=== PATIENT | female | born 1970 | race Caucasian/White ===

== ENCOUNTER 2020-06-15 15:30 | Outpatient (CLI) | payer BC, SELFPAY ==
--- NOTE | ~2020-06-15 | MM_ITS ---
EXAMINATION: MM screening charu BI w marija HISTORY: Screening TECHNIQUE: Craniocaudal and mediolateral oblique 3-D tomosynthesis images were obtained and synthetic 2-D images were generated. CAD analysis was submitted and interpreted. COMPARISON: Comparison to multiple prior studies sequentially, with oldest reviewed study dated 06/25. BREAST PARENCHYMAL COMPOSITION: There are scattered areas of fibroglandular density. FINDINGS: There is no evidence of suspicious mass, calcification, or architectural distortion to sugg est malignancy in either breast. There has been no suspicious interval change. IMPRESSION: 1. No mammographic evidence of malignancy. 2. Recommend routine screening mammography in one year. BI-RADS Category 1: Negative Reviewed, dictated and finalized at location A.
== END 2020-06-15 15:31 | disposition home or self-care (01) ==
LOC: ANHIMG 15:36
PROVIDERS: PCP Family Medicine; Visit Provider Nurse Practitioner Obstetrics & Gynecology
DX: Z12.31 Encounter for screening mammogram for malignant neoplasm of breast (principal)
CPT/HCPCS: 77063; 77067

== ENCOUNTER 2021-07-05 16:41 | Outpatient (CLI) | payer BC, SELFPAY ==
--- NOTE | ~2021-07-05 | MM_ITS ---
EXAMINATION: MM screening charu BI w marija HISTORY: Screening mammogram TECHNIQUE: Craniocaudal and mediolateral oblique 3-D tomosynthesis images were obtained and synthetic 2-D images were generated. CAD analysis was submitted and interpreted. COMPARISON: 06/15/2020 bilateral digital screening mammogram /10/2018 diagnostic right mammogram 01/04/2019 bilateral digital screening mammogram 05/27/2017 bilateral digital screening mammogram BREAST PARENCHYMAL COMPOSITION: There are scattered areas of fibroglandular density. FINDINGS: There is no evidence of suspicious mass, calcification, or architectural distortion to sugg est malignancy in either breast. There has been no suspicious interval change. IMPRESSION: 1. No mammographic evidence of malignancy. 2. Recommend routine screening mammography in one year. BI-RADS Category 1: Negative Reviewed, dictated and finalized at location A.
== END 2021-07-05 16:42 | disposition home or self-care (01) ==
LOC: ANHIMG 16:42
PROVIDERS: PCP Family Medicine; Visit Provider Nurse Practitioner Obstetrics & Gynecology
DX: Z12.31 Encounter for screening mammogram for malignant neoplasm of breast (principal)
CPT/HCPCS: 77063; 77067

== ENCOUNTER 2022-10-09 10:29 | Outpatient (CLI) | payer BC, SELFPAY ==
--- NOTE | ~2022-10-09 | MM_ITS ---
EXAMINATION: MM screening charu BI w marija HISTORY: Screening mammogram TECHNIQUE: Craniocaudal and mediolateral oblique 3-D tomosynthesis images were obtained and synthetic 2-D images were generated. CAD analysis was submitted and interpreted. COMPARISON: , 06/15/2020 bilateral screening mammogram examinations BREAST PARENCHYMAL COMPOSITION: There are scattered areas of fibroglandular density. FINDINGS: There is no evidence of suspicious mass, calcification, or architectural distortion to sugg est malignancy in either breast. There has been no suspicious interval change. IMPRESSION: 1. No mammographic evidence of malignancy. 2. Recommend routine screening mammography in one year. BI-RADS Category 1: Negative Reviewed, dictated and finalized at location A. [employer]ENTICE
== END 2022-10-09 10:30 | disposition home or self-care (01) ==
LOC: ANHIMG 10:31
PROVIDERS: PCP Family Medicine; Visit Provider Nurse Practitioner Obstetrics & Gynecology
DX: Z12.31 Encounter for screening mammogram for malignant neoplasm of breast (principal)
CPT/HCPCS: 77063; 77067

== ENCOUNTER 2024-01-13 16:37 | Outpatient (CLI) | payer BC, SELFPAY ==
--- NOTE | ~2024-01-13 | MM_ITS ---
EXAMINATION: MM screening charu BI w marija HISTORY: Screening TECHNIQUE: Craniocaudal and mediolateral oblique 3-D tomosynthesis images were obtained and synthetic 2-D images were generated. CAD analysis was submitted and interpreted. COMPARISON: Comparison to multiple prior studies sequentially, with oldest reviewed study dated 05/27. BREAST PARENCHYMAL COMPOSITION: Not dense: There are scattered areas of fibroglandular density. FINDINGS: There is no evidence of suspicious mass, calcification, or architectural distortion to sugg est malignancy in either breast. There has been no suspicious interval change. IMPRESSION: 1. No mammographic evidence of malignancy. 2. Recommend routine screening mammography in one year. BI-RADS Category 1: Negative Reviewed, dictated and finalized at location A.
== END 2024-01-13 16:38 | disposition home or self-care (01) ==
PROVIDERS: PCP Family Medicine; Visit Provider Nurse Practitioner Obstetrics & Gynecology
DX: Z12.31 Encounter for screening mammogram for malignant neoplasm of breast (principal)
CPT/HCPCS: 77063; 77067

== ENCOUNTER 2025-02-28 14:12 | Outpatient (CLI) | payer OTHER, SELFPAY ==
--- OUTSIDE RECORDS SUMMARY | 2025-02-28 14:17 | XMS_ITS | Referral Summary ---
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 Name Role Phone Charlene Ortiz MD Primary Care Provi indra Dion Panchal MD PhD Unavailable [phone] Encounters Date Type Department Care Team Description 01/26/2025 Documentation [facility] Multiple Sclerosis [facility] [address] [place] [phone] Citlalli Rosenberg RN 01/26/2025 Letter (Out) [facility] Multiple Sclerosis [facility] [address] [place] [phone] 01/25/2025 Results Follow-Up [facility] Multiple Sclerosis [facility] [address] [place] [phone] Dion Panchal MD PhD Iron profile w/ IBC 01/25/2025 10:35 AM CDT Lab [facility] [address] [place] [phone] Multiple sclerosis (HCC) 01/25/2025 9:00 AM CDT Office Visit [facility] Multiple Sclerosis [address] [place] [address] Advanced Medicine [address] [place] [phone] Dion Panchal MD PhD Multiple sclerosis (HCC) (Primary Dx); Restless leg syndrome 01/15/2025 Letter (Out) [facility] Multiple Sclerosis [address] [facility] 7th [place] [phone] 01/05/2025 Telephone [facility] Multiple Sclerosis [address] [facility] [place] [phone] Malia Tom orders from Last 3 Months Allergies Active Allergy Reactions Criticality Noted Date Comments Colloidal Oatmeal Rash Medium 07/14/2024 Medications cetirizine (ZyrTEC) 10 mg tablet Take 1 tablet (10 mg total) by mouth daily Active cholecalciferol (VITAMIN D-3) 2000 unit tablet Act eriberto triamcinolone (KENALOG) 0.1 % cream Apply topically 2 (two) times a day Active multivit with calcium,iron,min (WOMEN'S DAILY MULTIVITAMIN ORAL) 0 Active OCRELIZUMAB IV Every 6 months 0 Active Active Problems Problem Noted Date Diagnosed Date History of optic neuritis 06/30/2024 History of COVID-19 06/30/2024 Medication monitoring encounter 07/24/2022 Overview (07/24/2022): Discussed healthy diet and disease prevention- reviewed working on healthy diet, regular physical activity to your level, wearing sun screen, seat belts. Reviewed not using any mind alternating substances and driving No texting/driving Discussed importance of scheduling recommended screening tests. Discussed importance of regular physical examinations for health maintenance Health Maintenance: Last PAP: 12/2020- Neg, Neg HPV Last mammogram: through 2020- Normal Last colonoscopy: referral placed Last Tdap: 2019 Last pneumonia: check with pharmacist Last Shingrix: @50 Last Flu: up to date Last COVID: up to date Assessment & Plan (07/24/2022 7:59 AM CDT): Discussed healthy diet and disease prevention- reviewed working on healthy diet, regular physical activity to your level, wearing sun screen, seat belts. Reviewed not using any mind alternating substances and driving No texting/driving Discussed importance of scheduling recommended screening tests. Discussed importance of regular physical examinations for health maintenance Health Maintenance: Last PAP: 12/2020- Neg, Neg HPV Last mammogram: through 2020- Normal Last colonoscopy: referral placed Last Tdap: 2019 Last pneumonia: check with pharmacist Last Shingrix: @50 Last Flu: up to date Last COVID: up to date Test results: if you have not received communication about test results within 7 days of the test being performed, please contact the office. Immunocompromised 06/06/2022 Assessment & Plan (07/24/2022 8:05 AM CDT): Secondary to medication Continue to be safe during the pandemic Immunosuppression due to drug therapy 03/24/2022 Assessment & Plan (07/24/2022 8:05 AM CDT): Secondary to medication Continue to be safe during the pandemic Assessment & Plan (06/05/2022 10:28 AM CDT): We reviewed treatment/pre exposure prophylaxis to COVID We reviewed that is it experimental, but that we hope that will decrease her risk of having severe COVID, hospitalization, ICU admission or She is going to reach out to her neurologist and let me know. Screening for cardiovascular condition 0 Assessment & Plan (12/02/2019 8:28 PM STAGE PRODUCER): Exam history, family history as well as exercise capacity are all normal. With only a left axis deviation on the ECG I do not see an indication for further evaluation. I will need to check her lipids however to complete the screen and this is in process. Abnormal ECG 12/01/2019 Overview (12/01/2019): Left axis deviation Assessment & Plan (12/02/2019 8:27 PM STAGE PRODUCER): Left axis deviation but otherwise normal. In the absence of a murmur and with her exercise tolerance this is not an indication for a further workup Assessment & Plan (12/02/2019 8:38 AM STAGE PRODUCER): Will see cardiology today for screening for medication High risk medication use 11/18/2019 Encounter for medication counseling 11/18/2019 Abnormal MRI 11/18/2019 Vitamin D deficiency 11/18/2019 Multiple sclerosis 10/28/2019 Assessment & Plan (07/24/2022 8:06 AM CDT): Chronic, stable Continue to follow with neurology Update me with any changes Call for questions or concerns Assessment & Plan (06/05/2022 10:27 AM CDT): Chronic, stable She will reach out to her neurologist to see if they are still recommending Evushield If they are given her immunosuppression, we will help her get set up Update me with any changes or concerns Assessment & Plan (12/02/2019 8:37 AM STAGE PRODUCER): Continue to follow with neuro Update me with any changes Call for questions or concerns Assessment & Plan (11/04/2019 1:40 PM STAGE PRODUCER): Continue to follow with neuro Will refer to cardiology for further care before starting medication Update me after the next visit Call for questions or concerns Optic neuritis 10/28/2019 Assessment & Plan (12/02/2019 8:38 AM STAGE PRODUCER): Stable Continue to follow with neuro Vision loss of right eye 08/13/2019 Assessment & Plan (11/04/2019 1:40 PM STAGE PRODUCER): Unchanged Continue to follow with neuro Update me after the visit Call for questions or concerns Assessment & Plan (08/13/2019 8:48 AM CDT): Will order AMINTA CT with/without contrast for further evaluation Any changes, to the er Referral to neuro placed Update me after the visit Call for questions or concerns Other headache syndrome 08/13/2019 Assessment & Plan (08/13/2019 8:48 AM CDT): Will check CT scan Will refer to neuro Update me after the visit Anything emergent to the er Call for questions or concerns Class 2 severe obesity due t o excess calories with serious comorbidity and body mass index (BMI) of 36.0 to 36.9 in adult 08/13/2019 Assessment & Plan (07/24/2022 8:05 AM CDT): BMI Follow-up includes: nutrition counseling. Assessment & Plan (05/24/2021 10:52 AM CDT): BMI Follow-up includes: nutrition counseling. Assessment & Plan (08/13/2019 8:49 AM CDT): BMI Follow-up includes: nutrition counseling. Immunizations Immunization Administration Dates Next Due COVID-19 mRNA (Finanzchef24) 0.3 m L (30 mcg) vaccine (12 years and up) 07/05/2023 Flucelvax Influenza Quad 08/21/2019 Hep B Vaccine 07/04/2020,01/28/2020,12/23/2019 Influenza, Quadrivalent, Mala l Culture-based MDCK, Preservative Free, Antibiotic Free, Intramuscular 06/28/2023,08/21/2019 Influenza, Quadrivalent, Spl it, Preservative Free, Intramuscular 07/14/2022,06/24/2021,06/18/2020 Influenza, Unspecified 08/21/2019 MightyMeeting (J&J) SARS-CoV-2 Vaccination 12/16/2020 Pneumococcal Conjugate Pcv20 07/23/2022 Tdap 12/02/2019 ZOSTER Recombinant 06/07/2023,03/22/2023 Social History Tobacco Use Types Packs/Day Years Used Date Smoking Tobacco: Never Smokeless Tobacco: Never Alcohol Use Standard Drinks/Week Comments Never 0 (1 standard drink = 0.6 oz pur e alcohol) AUDIT-C Answer Date Recorded Q1: How often do you have a drink containing alcohol? Never 01/14/2023 Q2: How many drinks containi ng alcohol do you have on a typical day when you are drinking? Patient does not drink Q3: How often do you have si x or more drinks on one occasion? Never 01/14/2023 PHQ-2 Answer Date Recorded PHQ-2 Total Score (If total score is 3 or more points, staff should administer the PHQ-9) 0 07/24/2022 Personal Safety Answer Date Recorded Have you ever been in or are you currently in a harmful physical or emotional relationship or is someone making you feel afraid or unsafe? 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 Not on file No t on file Last Filed Vital Signs Vital Sign Reading Time Taken Comments Blood Pressure 126/83 01/25/2025 9:00 AM CDT Pulse 79 01/25/2025 9:00 AM CDT Temperature 36.8 C (98.2 F) 01/25/2025 9:00 AM CDT Respiratory Rate 14 01/21/2023 3:35 PM CDT Oxygen Saturation 100% 01/21/2023 3:35 PM CDT Inhaled Oxygen Concentration - - Weight 98.7 kg (217 lb 9.6 oz) 01/25/2025 9:00 A M CDT Height 160 cm (5' 3 ) 01/25/2025 9:00 AM CDT Body Mass Index 38.55 01/25/2025 9:00 AM CDT Plan of Treatment Not on file Procedures Procedure Name Priority Date/Time Associated Diagnosis Comments EGFR Routine 01/25/2025 9:51 AM CDT Multiple sclerosis (HCC) DIFFERENTIAL AUTO Routine 01/25/2025 9:5 1 AM CDT Multiple sclerosis (HCC) IGM Routine 01/25/2025 9:51 AM CDT Multiple sclerosis (HCC) IMMUNE COMPETENCE Routine 01/25/2025 9:5 1 AM CDT Multiple sclerosis (HCC) COMPREHENSIVE METABOLIC PANEL Routine 01/25/2025 9:51 AM CDT Multiple sclerosis (HCC) CBC WITH AUTO DIFFERENTIAL Routine 01/25/2025 9:51 AM CDT Multiple sclerosis (HCC) FERRITIN Routine 01/25/2025 9:51 AM CDT Multiple sclerosis (HCC) IRON PROFILE W/ IBC Routine 01/25/2025 9 :51 AM CDT Multiple sclerosis (HCC) HEPATITIS B CORE ANTIBODY, TOTAL Routine 01/24/2025 7:24 AM CDT Multiple sclerosis (HCC) High risk medication use Immunosuppression due to drug therapy IMMUNOGLOBULINS A/E/G/M, SERUM Routine 01/08/2025 11:43 AM CDT Multiple sclerosis (HCC) High risk medication use Immunosuppression due to drug therapy LYMPHOCYTE SUBSET PANEL 1 Routine 01/08/2025 11:43 AM CDT Multiple sclerosis (HCC) High risk medication use Immunosuppression due to drug therapy COMPREHENSIVE METABOLIC PANEL Routine 01/08/2025 11:43 AM CDT Multiple sclerosis (HCC) High risk medication use Immunosuppression due to drug therapy CBC WITH AUTO DIFFERENTIAL Routine 01/08/2025 11:43 AM CDT Multiple sclerosis (HCC) High risk medication use Immunosuppression due to drug therapy HM MAMMOGRAPHY Routine 01/13/2024 COLONOSCOPY 01/21/2023 2:38 PM CDT PAP AND HIGH RISK HPV, REFLEX TO GENOTYPING Routine 12/14/2020 HEPATITIS PANEL, ACUTE Routine 0 12:23 PM STAGE PRODUCER Multiple sclerosis (HCC) Optic neuritis from Last 3 Months or Most Recently Relevant to Health Maintenance Results * eGFR (01/25/2025 9:51 AM CDT) eGFR See Comment >=60 Comment: Credited, Laboratory Error Wrong Collection Time Interpretive Data Reference Interval Normal >/= 90 mL/min/1.73m2 Mildly decreased* 60 - 89 mL/min/1.73m2 Mildly to moderately decreased 45 - 59 mL/min/1.73m2 Moderately to severely decreased 30 - 44 mL/min/1.73m2 Severely decreased 15 - 29 mL/min/1.73m2 Kidney Failure < 15 mL/min/1.73m2 *Relative to young adult level Estimated glomerular filtration rate is determined by the 2020 CKD-EPI equation recommended by the National Kidney Foundation (A Unifying Approach to GFR Estimation: Recommendations of the NKF-ASK Task Force on Reassessing the Inclusion of Race in Diagnosing Kidney Disease, JASN 2020). The CKD-EPI equation should not be used for patients with unstable renal function and has not been validated in children and those over 70. Current interpretive data was last reviewed 2021. Blood 01/25/2025 9:51 AM CDT 01/25/2025 10:52 AM CDT us Dion Panchal MD PhD LAB BLOOD ORDERABLES E dited Result - Final [facility] [place] [address] * Differential, auto (01/25/2025 9:51 AM CDT) Neutrophil abs See Comment 1.50 - 6.50 Comment:Credited, Laboratory Error Wrong Collection Time Imm gran abs See Comment 0.00 - 0.10 [facility] Comment:Credited, Laboratory Error Wrong Collection Time Lymphocyte abs See Comment 0.80 - 3.30 [facility] Comment:Credited, Laboratory Error Wrong Collection Time Monocyte abs See Comment 0.20 - 0.80 [facility] Comment:Credited, Laboratory Error Wrong Collection Time Eosinophil abs See Comment 0.00 - 0.50 [facility] Comment:Credited, Laboratory Error Wrong Collection Time Basophil abs See Comment 0.00 - 0.10 [facility] Comment:Credited, Laboratory Error Wrong Collection Time Neutrophil pct See Comment [facility] Comment: Credited, Laboratory Error Wrong Collection Time Interpretive Data Percent cell count reference ranges are not reported, since discordance with absolute values may lead to misinterpretation of CBC data. Current Interpretive Data was last revised on 2018. Imm gran pct See Comment [facility] Comment: Credited, Laboratory Error Wrong Collection Time Interpretive Data Percent cell count reference ranges are not reported, since discordance with absolute values may lead to misinterpretation of CBC data. Current Interpretive Data was last revised on 2018. Lymphocyte pct See Comment [facility] Comment: Credited, Laboratory Error Wrong Collection Time Interpretive Data Percent cell count reference ranges are not reported, since discordance with absolute values may lead to misinterpretation of CBC data. Current Interpretive Data was last revised on 2018. Monocyte pct See Comment [facility] Comment: Credited, Laboratory Error Wrong Collection Time Interpretive Data Percent cell count reference ranges are not reported, since discordance with absolute values may lead to misinterpretation of CBC data. Current Interpretive Data was last revised on 2018. Eosinophil pct See Comment [facility] Comment: Credited, Laboratory Error Wrong Collection Time Interpretive Data Percent cell count reference ranges are not reported, since discordance with absolute values may lead to misinterpretation of CBC data. Current Interpretive Data was last revised on 2018. Basophil pct See Comment [facility] Comment: Credited, Laboratory Error Wrong Collection Time Interpretive Data Percent cell count reference ranges are not reported, since discordance with absolute values may lead to misinterpretation of CBC data. Current Interpretive Data was last revised on 2018. Blood 01/25/2025 9:51 AM CDT 01/25/2025 10:44 AM CDT us Dion Panchal MD PhD LAB BLOOD ORDERABLES E dited Result - Final [facility] [address] [facility] [place] [address] * Immune competence (01/25/2025 9:51 AM CDT) CD3 pct See Comment 60 - 21 Comment:Credited, request ca nceled. CD3 Absolute See Comment 341 - 1884 [facility] Comment:Credited, request ca nceled. CD4 pct See Comment [facility] Comment:Credited, request ca nceled. CD4 Absolute See Comment 032 - 3393 [facility] Comment:Credited, request ca nceled. CD8 pct See Comment [facility] Comment:Credited, request ca nceled. CD8 Absolute See Comment 591 - 922 [facility] Comment:Credited, request ca nceled. CD19 pct See Comment [facility] Comment:Credited, request ca nceled. CD19 Absolute See Comment 90 - 488 [facility] Comment:Credited, request ca nceled. [id number] pct See Comment [facility] Comment:Credited, request ca nceled. [id number] Absolute See Comment 76 - 467 cells/mcL [facility] Comment:Credited, request ca nceled. CD4/CD8 ratio See Comment [facility] Comment:Credited, request ca nceled. Blood 01/25/2025 9:51 AM CDT 01/25/2025 10:44 AM CDT Result [facility] Dion Panchal MD PhD LAB BLOOD ORDERABLES E dited Result - Final Performing Organization Address [facility] Co de Phone Number [facility] [place] [employer] [place] [address] * (ABNORMAL) Iron profile w/ IBC (01/25/2025 9:51 AM CDT) Iron 28(L) 35 - 145 mcg/dL Comment:<Text removed> TIBC 303 250 - 400 mcg/dL [facility] Comment:<Text removed> Transferrin saturation 9(L) 20 - 50 % [facility] Comment:<Text removed> Blood 01/25/2025 9:51 AM CDT 01/25/2025 10:44 AM CDT Dion Panchal MD PhD LAB BLOOD ORDERABLES E dited Result - Final Performing Organization Address [facility] Co de Phone Number [facility] [place] [employer] [place] [address] * CBC with auto differential (01/25/2025 9:51 AM CDT) WBC See Comment 3.80 - 9.90 Comment:Credited, Laboratory Error Wrong Collection Time Hgb See Comment 11.9 - 15.5 [facility] Comment:Credited, Laboratory Error Wrong Collection Time Hct See Comment 35.6 - 45.5 [facility] Comment:Credited, Laboratory Error Wrong Collection Time Plt See Comment 150 - 400 [facility] Comment:Credited, Laboratory Error Wrong Collection Time MPV See Comment 9.1 - 12.3 [facility] Comment:Credited, Laboratory Error Wrong Collection Time RBC See Comment 3.90 - 5.20 [facility] Comment:Credited, Laboratory Error Wrong Collection Time MCV See Comment 81.3 - 96.4 [facility] Comment:Credited, Laboratory Error Wrong Collection Time MCH See Comment 27.1 - 33.3 [facility] Comment:Credited, Laboratory Error Wrong Collection Time MCHC See Comment 32.3 - 35.7 [facility] Comment:Credited, Laboratory Error Wrong Collection Time RDW CV See Comment 11.1 - 14.9 [facility] Comment:Credited, Laboratory Error Wrong Collection Time RDW SD See Comment 35.7 - 48.1 [facility] Comment:Credited, Laboratory Error Wrong Collection Time NRBC abs See Comment 0.00 - 0.01 [facility] Comment:Credited, Laboratory Error Wrong Collection Time Blood 01/25/2025 9:51 AM CDT 01/25/2025 10:44 AM CDT Dion Panchal MD PhD LAB BLOOD ORDERABLES E dited Result - Final Performing Organization Address City/[facility] Co de Phone Number [facility] [place] [address] * IgM (01/25/2025 9:51 AM CDT) Immunoglobulin M See Comment 40 - 230 mg/dL Comment:Credited, Laboratory Error Wrong Collection Time Blood 01/25/2025 9:51 AM CDT 01/25/2025 10:44 AM CDT Dion Panchal MD PhD LAB BLOOD ORDERABLES E dited Result - Final Performing Organization Address City/State/[facility] Co de Phone Number [facility] [place] [address] * Ferritin (01/25/2025 9:51 AM CDT) Ferritin 23 13 - 150 ng/mL Comment:<Text removed> Blood 01/25/2025 9:51 AM CDT 01/25/2025 10:44 AM CDT Dion Panchal MD PhD LAB BLOOD ORDERABLES E dited Result - Final [facility] [place] [address] * Comprehensive metabolic panel (01/25/2025 9:51 AM CDT) Sodium See Comment 135 - 145 mmol/L Comment:Credited, Laboratory Error Wrong Collection Time Potassium, pl See Comment 3.3 - 4.9 mmol/L [facility] Comment:Credited, Laboratory Error Wrong Collection Time Chloride See Comment 97 - 110 mmol/L [facility] Comment:Credited, Laboratory Error Wrong Collection Time CO2 See Comment 22 - 32 mmol/L [facility] Comment:Credited, Laboratory Error Wrong Collection Time Anion gap See Comment 2 - 15 mmol/L [facility] Comment:Credited, Laboratory Error Wrong Collection Time BUN See Comment 6 - 25 mg/dL [facility] Comment:Credited, Laboratory Error Wrong Collection Time Creatinine See Comment 0.60 - 1.10 mg/dL [facility] Comment:Credited, Laboratory Error Wrong Collection Time Glucose See Comment 70 - 199 mg/dL [facility] Comment: Credited, Laboratory Error Wrong Collection Time Interpretive Data Fasting glucose >/= 126 mg/dl is diagnostic for diabetes. Fasting is defined as no caloric intake for at least 8 hours. Fasting glucose between 100 mg/dl to 125 mg/dl is diagnostic of prediabetes. In a patient with classic symptoms of hyperglycemia or hyperglycemic crisis, a random glucose >/= 200 mg/dl is diagnostic for diabetes. In the absence of unequivocal hyperglycemia, results should be confirmed by repeat testing. The classification and Diagnosis of Diabetes Diabetes Care 2022; 46: S19-S40. Current interpretive data was last revised 2022. Calcium See Comment 8.5 - 10.3 mg/dL [facility] Comment:Credited, Laboratory Error Wrong Collection Time Bilirubin, total See Comment 0.1 - 1.2 mg/dL [facility] Comment:Credited, Laboratory Error Wrong Collection Time Protein, pl See Comment 6.5 - 8.5 g/dL [facility] Comment:Credited, Laboratory Error Wrong Collection Time Albumin See Comment 3.5 - 5.0 g/dL [facility] Comment:Credited, Laboratory Error Wrong Collection Time Alk phos See Comment 40 - 130 Units/L [facility] Comment:Credited, Laboratory Error Wrong Collection Time ALT See Comment 7 - 45 Units/L [facility] Comment:Credited, Laboratory Error Wrong Collection Time AST See Comment 10 - 45 Units/L [facility] Comment:Credited, Laboratory Error Wrong Collection Time Blood 01/25/2025 9:51 AM CDT 01/25/2025 10:44 AM CDT us Dion Panchal MD PhD LAB BLOOD ORDERABLES E dited Result - Final Performing Organization Address City/[facility] Co de Phone Number [facility] [place] [address] * Hepatitis B core antibody, total Blood (01/24/2025 7:24 AM CDT) Hep B core IgG/IgM NON-REACTI VE NON-REACTI VE [facility] Comment: For additional information, please refer to http://education.[employer].Vibrynt/faq/FYP905 (This link is being provided for informational/ educational purposes only.) Blood 01/24/2025 7:24 AM CDT 01/24/2025 7:24 AM CDT Narrative [facility] - 01/25/2025 6:13 AM CDT FASTING:NO FASTING: NO us Dion Panchal MD PhD LAB MICROBIOLOGY - GEN ERAL ORDERABLES Final Result [facility] [address] [place] [address] * (ABNORMAL) Immunoglobulins A/E/G/M, Serum (01/08/2025 11:43 AM CDT) [facility] Immunoglobulin A 193 47 - 310 mg/dL [facility] Immunoglobulin E 61 <HT=733 kU/L [facility] Immunoglobulin G 1,218 600 - 1,640 mg/dL [facility] Immunoglobulin M 41(L) 50 - 300 mg/dL [facility] Blood 01/08/2025 11:4 3 AM CDT 01/08/2025 11:44 AM CDT Narrative [facility] - 01/11/2025 12:23 PM CDT FASTING:YES FASTING: YES Dion Panchal MD PhD LAB BLOOD ORDERABLES F inal Result Performing Organization Address [facility] de Phone Number [facility] [address] [place] [address] * (ABNORMAL) Lymphocyte subset panel 1 (01/08/2025 11:43 AM CDT) [facility] % CD3 86(H) 57 - 85 % [facility] Absolute CD3+ cells 1,451 840 - 3,060 cells/uL [facility] CD4 % 64(H) 30 - 61 % [facility] CD4 cells 1,094 490 - 1,740 cells/uL [facility] % CD8 23 12 - 42 % [facility] Absolute CD8+ cells 402 180 - 1,170 cells/uL [facility] Bogart/Suppres sor ratio 2.72 0.86 - 5.00 [facility] % CD16+CD56 12 4 - 25 % [facility] Absolute NK cells (CD16+CD56+MALA LS) 202 70 - 760 cells/uL [facility] CD19 pct 6 - 29 % [facility] Comment:Less than 1 Absolute CD19+ CELLS <20(L) 110 - 660 cells/uL [facility] Lymphocytes, abs 1,686 850 - 3,900 cells/uL [facility] Blood 01/08/2025 11:4 3 AM CDT 01/08/2025 11:44 AM CDT Narrative [facility] - 01/11/2025 12:23 PM CDT FASTING:YES FASTING: YES us Dion Panchal MD PhD LAB BLOOD ORDERABLES F inal Result [facility] [address] [place] [address] * (ABNORMAL) CBC with auto differential (01/08/2025 11:43 AM CDT) WBC 7.0 3.8 - 10.8 Thousand/u L [facility] RBC, POC 4.77 3. [id number]||2025-02-28 16:24:00|MM_ITS|BURKT|Imaging|[id number]|"EXAMINATION: MM screening charu BI w marija HISTORY: Screening TECHNIQUE: Craniocaudal and mediolateral oblique 3-D tomosynthesis images were obtained and synthetic 2-D images were generated. CAD analysis was submitted and interpreted. COMPARISON: Comparison to multiple prior studies sequentially, with oldest reviewed study dated 01/04. BREAST PARENCHYMAL COMPOSITION: Not dense: There are scattered areas of fibroglandular density. FINDINGS: There is no evidence of suspicious mass, calcification, or architectural distortion to sugg est malignancy in either breast. There has been no suspicious interval change. IMPRESSION: 1. No mammographic evidence of malignancy. 2. Recommend routine screening mammography in one year. BI-RADS Category 1: Negative Reviewed, dictated and finalized at location B. IMPRESSION: 1. No mammographic evidence of malignancy. 2. Recommend routine screening mammography in one year. BI-RADS Category 1: Negative "
--- OUTSIDE RECORDS SUMMARY | 2025-02-28 14:17 | XMS_ITS | Encounter Summary ---
Author Organization [facility] Facility Care Team Providers Care Gill Net Stringer Name Role Phone Charlene Ortiz MD Primary Care Provi indra Rei Montero MD Unavailable [phone] Rei Montero MD Unavailable [phone] Dion Panchal MD PhD Unavailable [phone] Encounter Details Date Type Department Care Team (Latest Contact Info) Description 05/01/2017 Orders Only [facility] CLINCONV Provider, MD Polo [address] [place], [place] [id number] Social History Tobacco Use Types Packs/Day Years Used Date Smoking Tobacco: Never Assessed Comments Unknown Sex and Gender Information Value Date Recorded Sex Assigned at Not on file 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 us Historical Provider Final Res ult documented in this encounter Visit Diagnoses Not on filedocumented in this encounter Care Teams Gill Net Stringer Relationship Specialty Start Date End Date Charlene Ortiz MD [address] [place] [phone] PCP - General Family Medicine 08/12/19 Rei Montero MD [address] [place] [address] Consulting Physician Neurology 12/02/19 07/23/22 Rei Montero MD [address] [place] [address] Consulting Physician Neurology 12/02/19 07/23/22 Dion Panchal MD PhD [address] [facility] [id number] [place] [address] Consulting Physician Neurology 07/24/22 documented as of this encounter
--- OUTSIDE RECORDS SUMMARY | 2025-02-28 14:17 | XMS_ITS | Encounter Summary ---
Author Organization [facility] Address [address] [facility] [place] [address] Care Team Providers Care Toll Lineman Name Role Phone Unavailable Primary Care Provider Unavailabl e Encounter Details Date Type Department Care Team (Late st Contact Info) Description 07/23/2023 Lab Requisition [facility] - D[facility] [address] [place] [phone] Kieran Adams MD [address] [place] [address] Social History Tobacco Use Types Packs/Day Years Used Date Smoking Tobacco: Never Assessed Comments Unknown Sex and Gender Information Value Date Recorded Sex Assigned at Not on file 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 Gender Identity Not on file Sexual Orientation Not on file documented as of this encounter Plan of Treatment Not on file documented as of this encounter Procedures Procedure Name Priority Date/Time Associated Diagnosis Comments DERMATOPATHOLOGY Routine 07/22/2023 12:0 0 AM CDT documented in this encounter Results * DERMATOPATHOLOGY (07/22/2023 12:00 AM CDT) Case Report Dermatopathology Report Case: [id number] Authorizing Provider: Kieran Adams MD Collected: 07/22/2023 12:00 AM Ordering Location: [facility] Derm[facility] Lab Received: 07/23/2023 04:15 PM Pathologist: Marzena Jerry MD Specimen: Skin, left lateral upper eyelid 3 4:16 PM CDT DERMATOPATHOLOGY LABORATORY Final Diagnosis Specimen A. SKIN, left lateral upper eyelid: BENIGN VERRUCOUS KERATOSIS, INFLAMED (L82.1) (see microscopic description) 3 4:16 PM CDT DERMATOPATHOLOGY LABORATORY at 1616 CDT Clinical History R/O VV , Tag other 3 4:16 PM CDT DERMATOPATHOLOGY LABORATORY Gross Description Specimen A: Received is one formalin filled container labeled with the patient's name and designated left lateral upper eyelid. The specimen consists of a shave biopsy measuring 3x1x2 mm. Jar 0. 4:16 PM CDT DERMATOPATHOLOGY LABORATORY Microscopic Description Specimen A. SKIN, left lateral upper eyelid: Sections show hyperkeratosis, papillomatosis, hypergranulosis, and acanthosis. Inflammatory cells are present within the dermis. These histological findings can be seen in a verruca vulgaris or a seborrheic keratosis. Additional deeper sections were obtained and reviewed. 4:16 PM CDT DERMATOPATHOLOGY LABORATORY Disclaimer An external and internal positive and negative controls are appropriate for the histochemical, immunohistochemical and immunofluorescence stain(s) in this case (if any), except where stated explicitly. The performance characteristics of the stain(s) cited in this report were developed and its performance characteristic determined by the Dermatopathology Laboratory at [facility], directed by Dr. Lucas Spencer. These tests need not be, and therefore are not, approved by the [place] Food and Drug Administration. The tests are used for clinical purposes. Billing Codes Specimen Charges Stain Charges 37027 1 3 4:16 PM CDT DERMATOPATHOLOGY LABORATORY Embedded Images 3 4:16 PM CDT DERMATOPATHOLOGY LABORATORY Pathology/Cytolog y TISSUE SPECIMEN FROM SKIN / Unknown 07/22/2023 07/23/2023 4:15 PM CDT us Kieran Adams MD LAB - PATHOLOGY/CYTOLOGY ORD ERABLES Final Result DERMATOPATHOLOGY LABORATORY [facility] - Department of Dermatology [address], [address] [phone] documented in this encounter Visit Diagnoses Not on filedocumented in this encounter
--- OUTSIDE RECORDS SUMMARY | 2025-02-28 14:17 | XMS_ITS | Encounter Summary ---
Author Organization [facility] Facility Care Team Providers Care Plow Shaker Name Role Phone Charlene Ortiz MD Primary Care Provi indra Rei Montero MD Unavailable [phone] Rei Montero MD Unavailable [phone] Dion Panchal MD PhD Unavailable [phone] Encounter Details Date Type Department Care Team (Latest Contact Info) Description 05/09/2018 Orders Only [facility] CLINCONV Provider, MD Polo [address] [place], [place] [phone] Social History Tobacco Use Types Packs/Day Years Used Date Smoking Tobacco: Never Assessed Comments Unknown Sex and Gender Information Value Date Recorded Sex Assigned at Not on file 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 us Historical Provider Final Res ult documented in this encounter Visit Diagnoses Not on filedocumented in this encounter Care Teams Plow Shaker Relationship Specialty Start Date End Date Charlene Ortiz MD [address] [place] [phone] PCP - General Family Medicine 08/12/19 Rei Montero MD [address] [place] [address] Consulting Physician Neurology 12/02/19 07/23/22 Rei Montero MD [address] [place] [address] Consulting Physician Neurology 12/02/19 07/23/22 Dion Panchal MD PhD [address] [facility] [id number] [place] [address] Consulting Physician Neurology 07/24/22 documented as of this encounter
--- OUTSIDE RECORDS SUMMARY | 2025-02-28 14:17 | XMS_ITS | Encounter Summary ---
Author Organization [facility] Address [address] [place] [address] Phone Care Team Providers Care Freight Clerk Name Role Phone Charlene Ortiz MD Primary Care Provi indra Rei Montero MD Unavailable [phone] Rei Montero MD Unavailable [phone] Dion Panchal MD PhD Unavailable [phone] Encounter Details Date Type Department Care Team (Latest Contact Info) Description 11/04/2019 Orders Only [facility] Scanning, Provider Social History Tobacco Use Types Packs/Day Years Used Date Smoking Tobacco: Never Smokeless Tobacco: Never Alcohol Use Standard Drinks/Week Comments Never 0 (1 standard drink = 0.6 oz pur e alcohol) AUDIT-C Answer Date Recorded Frequency of Alcohol Consumption Never 08/13/2019 Average Number of Drinks Not on file 019 Frequency of Binge Drinking Not on file 10/2018 PHQ-2 Answer Date Recorded PHQ-2 Score 0 08/13/2019 Comments No Sex and Gender Information Value Date Recorded Sex Assigned at Not on file 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 Gender Identity Female 03/26/2021 3:39 PM CDT Sexual Orientation Straight 03/26/2021 3: 39 PM CDT 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 Not on file No t on file documented as of this encounter Plan of Treatment Not on file documented as of this encounter Procedures Procedure Name Priority Date/Time Associated Diagnosis Comments CARDIOLOGY DOCUMENT SCAN 11/04/2019 documented in this encounter Results * SCAN - CARDIOLOGY (11/04/2019) Anatomical Region Laterality Modality Other us Provider Scanning CV CARDIAC SERVICES PROCEDURES Final Result documented in this encounter Visit Diagnoses Not on filedocumented in this encounter Care Teams Freight Clerk Relationship Specialty Start Date End Date Charlene Ortiz MD [address] [place] [address] PCP - General Family Medicine 08/12/19 Rei Montero MD [address] [place] [address] Consulting Physician Neurology 12/02/19 07/23/22 Rei Montero MD [address] [place] [address] Consulting Physician Neurology 12/02/19 07/23/22 Dion Panchal MD PhD [address] [facility] [address] [id number] [place] [address] Consulting Physician Neurology 07/24/22 documented as of this encounter
--- OUTSIDE RECORDS SUMMARY | 2025-02-28 14:17 | XMS_ITS | Encounter Summary ---
Author Organization [facility] Address [address] [place] [address] Care Team Providers Care Cosmetics Demonstrator Name Role Phone Charlene Ortiz MD Primary Care Provi indra Rei Montero MD Unavailable Rei Montero MD Unavailable Dion Panchal MD PhD Unavailable [phone] Encounter Details Date Type Department Care Team (Late st Contact Info) Description 09/07/2021 Telephone [facility] Radiology [address] [place], [place] [phone] Rei Montero MD [address] [place], [place] [phone] Social History Tobacco Use Types Packs/Day Years Used Date Smoking Tobacco: Never Smokeless Tobacco: Never Alcohol Use Standard Drinks/Week Comments Never 0 (1 standard drink = 0.6 oz pur e alcohol) AUDIT-C Answer Date Recorded Q1: How often do you have a drink containing alc ohol? Never 05/24/2021 Average Number of Drinks Not on file 021 Q3: How often do you have si x or more drinks on one occasion? 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 on file No t on file documented as of this encounter Plan of Treatment Not on file documented as of this encounter Visit Diagnoses Not on filedocumented in this encounter Care Teams Cosmetics Demonstrator Relationship Specialty Start Date End Date Charlene Ortiz MD [address] [place] [address] PCP - General Family Medicine 08/12/19 Rei Montero MD [address] [place] [address] Consulting Physician Neurology 12/02/19 07/23/22 Rei Montero MD [address] [place] [address] Consulting Physician Neurology 12/02/19 07/23/22 Dion Panchal MD PhD [address] [facility] [id number] [place] [address] Consulting Physician Neurology 07/24/22 documented as of this encounter
--- OUTSIDE RECORDS SUMMARY | 2025-02-28 14:17 | XMS_ITS | Clinical Summary ---
Author Organization [address] Address [address] [place] [phone] Care Team Providers Care Corrective Therapist Name Role Phone Charlene Ortiz MD Primary Care Provi indra Dion Panchal MD PhD Unavailable [phone] Allergies Active Allergy Reactions Criticality Noted Date [...] 0 Assessment & Plan (12/02/2019 8:28 PM TITLE LAWYER): Exam history, family history as well as exercise capacity are all normal. With only a left axis deviation on the ECG I do not see an indication for further evaluation. I will need to check her lipids however to complete the screen and this is in process. Abnormal ECG 12/01/2019 Overview (12/01/2019): Left axis deviation Assessment & Plan (12/02/2019 8:27 PM TITLE LAWYER): Left axis deviation but otherwise normal. In the absence of a murmur and with her exercise tolerance this is not an indication for a further workup Assessment & Plan (12/02/2019 8:38 AM TITLE LAWYER): Will see cardiology today for screening for [...] concerns Assessment & Plan (12/02/2019 8:37 AM TITLE LAWYER): Continue to follow with neuro Update me with any changes Call for questions or concerns Assessment & Plan (11/04/2019 1:40 PM TITLE LAWYER): Continue to follow with neuro Will refer to cardiology for further care before starting medication Update me after the next visit Call for questions or concerns Optic neuritis 10/28/2019 Assessment & Plan (12/02/2019 8:38 AM TITLE LAWYER): Stable Continue to follow with neuro Vision loss of right eye 08/13/2019 Assessment & Plan (11/04/2019 1:40 PM TITLE LAWYER): Unchanged Continue to follow with neuro Update [...] AM CDT): BMI Follow-up includes: nutrition counseling. Encounters Date Type Department Care Team Description 01/26/2025 Documentation [facility] [address] [place] [address] Advanced Medicine [address] [place] [phone] Citlalli Rosenberg RN 01/26/2025 Letter (Out) [facility] [address] [place] [address] [phone] 01/25/2025 10:35 AM CDT Lab [facility] [address] [place] [phone] Multiple sclerosis (HCC) 01/25/2025 9:00 AM CDT Office Visit [facility] [address] [place] [address] Advanced [facility] [address] [place] [phone] Dion Panchal MD PhD Multiple sclerosis (HCC) (Primary Dx); Restless leg syndrome 01/25/2025 Results Follow-Up [facility] [address] [place] [address] for [facility] [address]th [place] [phone] Dion Panchal MD PhD Iron profile w/ IBC 01/15/2025 Letter (Out) [facility] [address] [facility] [address]th [place] [phone] 01/05/2025 Telephone [facility] [address] [place] [address] [place] [phone] Malia Tom orders from Last 3 Months Immunizations Immunization Administration Dates Next Due COVID-19 mRNA (AVIA) 0.3 m L (30 mcg) vaccine (12 years and up) 07/05/2023 Flucelvax Influenza Quad 08/21/2019 Hep B Vaccine 07/04/2020,01/28/2020,12/23/2019 Influenza, Quadrivalent, Kika l Culture-based MDCK, Preservative Free, Antibiotic Free, Intramuscular 06/28/2023,08/21/2019 Influenza, Quadrivalent, Spl it, Preservative Free, Intramuscular 07/14/2022,06/24/2021,06/18/2020 Influenza, Unspecified 08/21/2019 Jordin (J&J) SARS-CoV-2 Vaccination 12/16/2020 Pneumococcal Conjugate Pcv20 07/23/2022 Tdap 12/02/2019 ZOSTER Recombinant 06/07/2023,03/22/2023 Surgical History Surgery Date Site/Laterality Comments WISDOM TOOTH EXTRACTION Medical History Medical History Date Comments Migraine Eczema MS (multiple sclerosis) ([facility]) Family History Medical History Relation Name Comments No Known Problems Brother Hypertension Father Migraines Father Diabetes Maternal Grandfather Heart disease Maternal Grandfather Colon cancer Maternal Grandmother Heart disease Maternal Grandmother Hyperlipidemia Mother COPD Paternal Grandfather Hypertension Paternal Grandmother Relation Name Status Comments Brother Alive Father Alive Maternal Grandfather Maternal Grandmother Mother Alive Paternal Grandfather Paternal Grandmother Social History Tobacco Use Types Packs/Day Years [...] on file Legal Sex Female 2:34 AM TITLE LAW[employer]ER Gender Identity Female 03/26/2021 3:39 PM CDT Sexual Orientation Straight 03/26/2021 3: 39 PM CDT 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 Not on file No t on file Obstetrics History Last Filed Vital Signs Vital Sign Reading [...] 01/25/2025 9:00 AM CDT Plan of Treatment Health Maintenance Due Date Last Done Comments Cervical Cancer Screening 12/14/20212020, 11/05/2018, 11/05/2018 Depression Screening 07/24/2023 07/24/2022, 06/05/2022, 05/24/2021, Additional history exists Regular Well Visit/Exam 18-64 07/24/2023 07/24/2022, 07/24/2022 Covid-19 Vaccine (8 - 2023-2 5 season) 2024 07/05/2023, 10/08/2022, 03/30/2022, Additional history exists Breast Cancer Screening-Mammogram 01/12/2025 01/13/2024, 10/09/2022, 10/09/2022, Additional history exists Colon Cancer Screening-Colonoscopy 01/22/20282022 DTaP/Tdap/Td Vaccine (2 - Td or Tdap) 12/02/2029 12/02/2019 Hepatitis C Screening Completed 10/30/2019 Hepatitis B Screening Completed 07/04/2020 , 01/28/2020, 12/23/2019 Pneumococcal vaccine <65 Completed 07/23/2022 Zoster Vaccine Completed 06/07/2023, 03/22/2023 Influenza Vaccine Completed 07/17/2024, , 07/14/2022, Additional history exists Procedures Procedure Name Priority Date/Time Associated Diagnosis [...] GENOTYPING Routine 12/14/2020 HEPATITIS PANEL, ACUTE Routine 12:23 PM TITLE LAWYER Multiple sclerosis (HCC) Optic neuritis from Last [...] BLOOD ORDERABLES E dited Result - Final [facility] Department [place] [address] * Differential, auto (01/25/2025 9:51 AM CDT) Neutrophil abs See Comment 1.50 - 6.50 Comment:Credited, Laboratory Error Wrong Collection Time Imm gran abs See Comment 0.00 - 0.10 [facility] Comment:Credited, Laboratory Error Wrong Collection Time Lymphocyte abs See Comment 0.80 - 3.30 [facility] Comment:Credited, Laboratory Error Wrong Collection Time Monocyte abs See Comment 0.20 - 0.80 [facility] Comment:Credited, Laboratory Error Wrong Collection Time Eosinophil abs See Comment 0.00 - 0.50 [facility] Comment:Credited, Laboratory Error Wrong Collection Time Basophil [...] on 2018. Lymphocyte pct See Comment [facility] Comment: Credited, Laboratory Error Wrong Collection Time Interpretive Data Percent cell count reference ranges are not reported, since discordance with absolute values may lead to misinterpretation of CBC data. Current Interpretive Data was last revised on 2018. Monocyte pct See Comment [facility] Comment: Credited, Laboratory Error Wrong Collection Time Interpretive Data Percent cell count reference ranges are not reported, since discordance with absolute values may lead to misinterpretation of CBC data. Current Interpretive Data was last revised on 2018. Eosinophil pct See Comment [facility] Comment: Credited, Laboratory Error Wrong Collection Time Interpretive Data Percent cell count reference ranges are not reported, since discordance with absolute values may lead to misinterpretation of CBC data. Current Interpretive Data was last revised on 2018. Basophil pct See Comment [facility] Comment: Credited, Laboratory Error Wrong Collection Time Interpretive Data Percent cell count reference ranges are not reported, since discordance with absolute values may lead to misinterpretation of CBC data. Current Interpretive Data was last revised on 2018. Blood 01/25/2025 9:51 AM CDT 01/25/2025 10:44 AM CDT us Dion Panchal MD PhD LAB BLOOD ORDERABLES E dited Result - Final [facility] [place] [address] * Immune competence (01/25/2025 9:51 AM CDT) CD3 pct See Comment 60 88 Comment:Credited, request ca nceled. CD3 Absolute See Comment [phone] - [phone] [facility] Comment:Credited, request ca nceled. CD4 pct See Comment [facility] Comment:Credited, request ca nceled. CD4 Absolute See Comment 652 - 8221 [facility] Comment:Credited, request ca nceled. CD8 pct See Comment [facility] Comment:Credited, request ca nceled. CD8 Absolute See Comment 054 - 411 [facility] Comment:Credited, request ca nceled. CD19 pct See Comment [facility] Comment:Credited, request ca nceled. CD19 Absolute See Comment 76 - 417 [facility] Comment:Credited, request ca nceled. [id number] pct See Comment [facility] Comment:Credited, request ca nceled. [id number] Absolute See Comment 76 467 cells/mcL [facility] Comment:Credited, request ca nceled. CD4/CD8 ratio See Comment [facility] Comment:Credited, request ca nceled. Blood 01/25/2025 9:51 AM CDT 01/25/2025 10:44 AM CDT Dion Panchal MD PhD LAB BLOOD ORDERABLES E dited Result - Final Performing Organization Address [facility] Co de Phone Number [facility] [place] [address] * (ABNORMAL) Iron profile w/ IBC (01/25/2025 9:51 AM CDT) Pathologist [facility] Iron 28(L) 35 - 145 mcg/dL Comment:<Text removed> TIBC 303 250 - 400 mcg/dL [facility] Comment:<Text removed> Transferrin saturation 9(L) 20 - 50 % [facility] Comment:<Text removed> Blood 01/25/2025 9:51 AM CDT 01/25/2025 10:44 AM CDT Dion Panchal MD PhD LAB BLOOD ORDERABLES E dited Result - Final Performing Organization Address [facility] de Phone Number [facility] [place] [address] * CBC with auto differential (01/25/2025 9:51 AM CDT) Pathologist [facility] WBC See Comment 3.80 - 9.90 Comment:Credited, Laboratory Error Wrong Collection Time Hgb See Comment 11.9 - 15.5 [facility] Comment:Credited, Laboratory Error Wrong Collection Time Hct See Comment 35.6 - 45.5 [facility] Comment:Credited, Laboratory Error Wrong Collection Time Plt See Comment 150 - 400 [facility] Comment:Credited, Laboratory Error Wrong Collection Time MPV See Comment 9.1 - 12.3 [facility] Comment:Credited, Laboratory Error Wrong Collection Time RBC See Comment 3.90 - 5.20 [facility] Comment:Credited, Laboratory Error Wrong Collection Time MCV See Comment 81.3 - 96.4 [facility] Comment:Credited, Laboratory Error Wrong Collection Time MCH See Comment 27.1 - 33.3 [facility] Comment:Credited, Laboratory Error Wrong Collection Time MCHC See Comment 32.3 - 35.7 [facility] Comment:Credited, Laboratory Error Wrong Collection Time RDW CV See Comment 11.1 - 14.9 [facility] Comment:Credited, Laboratory Error Wrong Collection Time RDW SD See Comment 35.7 - 48.1 [facility] Comment:Credited, Laboratory Error Wrong Collection Time NRBC abs See Comment 0.00 - 0.01 [facility] Comment:Credited, Laboratory Error Wrong Collection Time Blood 01/25/2025 9:51 AM CDT 01/25/2025 10:44 AM CDT Dion Panchal MD PhD LAB BLOOD ORDERABLES E dited Result - Final Performing Organization Address [facility] de Phone Number [facility] [place] [address] * IgM (01/25/2025 9:51 AM CDT) Immunoglobulin M See Comment 40 - 230 mg/dL Comment:Credited, Laboratory Error Wrong Collection Time Blood 01/25/2025 9:51 AM CDT 01/25/2025 10:44 AM CDT Dion Panchal MD PhD LAB BLOOD ORDERABLES E dited Result - Final Performing Organization Address [facility] de Phone Number [facility] [address] * Ferritin (01/25/2025 9:51 AM CDT) Ferritin 23 13 - 150 ng/mL Comment:<Text removed> Blood 01/25/2025 9:51 AM CDT 01/25/2025 10:44 AM CDT us Dion Panchal MD PhD LAB BLOOD ORDERABLES E dited Result - Final [facility] [place] [address] * Comprehensive metabolic panel (01/25/2025 9:51 AM CDT) Sodium See Comment 135 - 145 mmol/L Comment:Credited, Laboratory Error Wrong Collection Time Potassium, pl See Comment 3.3 - 4.9 mmol/L [facility] Comment:Credited, Laboratory Error Wrong Collection Time Chloride See Comment 97 - 110 mmol/L [facility] Comment:Credited, Laboratory Error Wrong Collection Time CO2 See Comment 22 - 32 mmol/L [facility] Comment:Credited, Laboratory Error Wrong Collection Time Anion gap See Comment 2 - 15 mmol/L [facility] Comment:Credited, Laboratory Error Wrong Collection Time BUN See Comment 6 - 25 mg/dL [facility] Comment:Credited, Laboratory Error Wrong Collection Time Creatinine See Comment 0.60 - 1.10 mg/dL [facility] Comment:Credited, Laboratory Error Wrong Collection Time Glucose See Comment 70 - 199 mg/dL [facility] Comment: Credited, Laboratory Error Wrong [...] classification and Diagnosis of Diabetes Diabetes Care 2021; 46: S19-S40. Current interpretive data was last revised 2022. Calcium See Comment 8.5 - 10.3 mg/dL [facility] Comment:Credited, Laboratory Error Wrong Collection Time Bilirubin, total See Comment 0.1 - 1.2 mg/dL [facility] Comment:Credited, Laboratory Error Wrong Collection Time Protein, pl See Comment 6.5 - 8.5 g/dL [facility] Comment:Credited, Laboratory Error Wrong Collection Time Albumin See Comment 3.5 - 5.0 g/dL [facility] Comment:Credited, Laboratory Error Wrong Collection Time Alk phos See Comment 40 - 130 Units/L [facility] Comment:Credited, Laboratory Error Wrong Collection Time ALT See Comment 7 - 45 Units/L [facility] Comment:Credited, Laboratory Error Wrong Collection Time AST See Comment 10 - 45 Units/L [facility] Comment:Credited, Laboratory Error Wrong Collection Time Blood 01/25/2025 9:51 AM CDT 01/25/2025 10:44 AM CDT us Dion Panchal MD PhD LAB BLOOD ORDERABLES E dited Result - Final Performing Organization Address [facility]/ZIP Co de Phone Number [facility] [place] [address] * Hepatitis B core antibody, total Blood (01/24/2025 7:24 AM CDT) Pathologist [facility] Hep B core IgG/IgM NON-REACTI VE NON-REACTI VE [facility] Comment: For additional information, please refer to http://education.myCampusTutors/faq/AQT864 (This link is being provided for informational/ educational purposes only.) Blood 01/24/2025 7:24 AM CDT 01/24/2025 7:24 AM CDT Narrative [facility] - 01/25/2025 6:13 AM CDT FASTING:NO FASTING: NO us Dion Panchal MD PhD LAB MICROBIOLOGY - GEN ERAL ORDERABLES Final Result [facility] [address] [phone] * (ABNORMAL) Immunoglobulins A/E/G/M, Serum (01/08/2025 11:43 AM CDT) Pathologist [facility] Immunoglobulin A 193 47 - 310 mg/dL [facility] Immunoglobulin E 61 <YA=056 kU/L [facility] Immunoglobulin G 1,218 600 - 1,640 mg/dL [facility] Immunoglobulin M 41(L) 50 - 300 mg/dL [facility] Blood 01/08/2025 11:4 3 AM CDT 01/08/2025 11:44 AM CDT Narrative [facility] - 01/11/2025 12:23 PM CDT FASTING:YES FASTING: YES us Dion Panchal MD PhD LAB BLOOD ORDERABLES F inal Result [facility] [address] [place] [address] * (ABNORMAL) Lymphocyte subset panel 1 (01/08/2025 11:43 AM CDT) % CD3 86(H) 57 - 85 % [facility] Absolute CD3+ cells 1,451 840 - 3,060 cells/uL [facility] CD4 % 64(H) 30 - 61 % [facility] CD4 cells 1,094 490 - 1,740 cells/uL [id number]|2025-02-28 14:17:00|2025-02-28 14:17:00|XMS_ITS|BKG DAEMON|External Medical Summaries|[id number]|" Encounter Summary Created on: February 28, 2025 Charlene Pepper : 1970 Sex: Female Author Organization [facility] Address [address] [place] [address] Phone Care Team Providers Care Corrective Therapist Name Role Phone Charlene Ortiz MD Primary Care Provi indra Rei Montero MD Unavailable [phone] Rei Montero MD Unavailable [phone] Dion Panchal MD PhD Unavailable [phone] Encounter Details Date Type Department Care Team (Late st Contact Info) Description 10/15/2019 Telephone [facility] Scheduling [address] [facility] [address] [place], [place] [phone] Rei Montero MD [address] [place] [address] Social History Tobacco Use Types Packs/Day Years Used Date Smoking Tobacco: Never Alcohol Use Standard Drinks/Week Comments Never 0 (1 standard drink = 0.6 oz pur e alcohol) AUDIT-C Answer Date Recorded Frequency of Alcohol Consumption Never 08/13/2019 Average Number of Drinks Not on file 019 Frequency of Binge Drinking Not on file 10/2018 PHQ-2 Answer Date Recorded PHQ-2 Score 0 08/13/2019 Comments Unknown Sex and Gender Information Value Date Recorded Sex Assigned at Not on file Legal Sex Female 2:34 AM T[employer] LAW[employer]ER Gender Identity Female 03/26/2021 3:39 PM CDT Sexual Orientation Straight 03/26/2021 3: 39 PM CDT 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 Not on file No t on file documented as of this encounter Plan of Treatment Not on file documented as of this encounter Visit Diagnoses Not on filedocumented in this encounter Care Teams Corrective Therapist Relationship Specialty Start Date End Date Charlene Ortiz MD [address] [place] [address] PCP - General Family Medicine 08/12/19 Rei Montero MD [address] [place] [address] Consulting Physician Neurology 12/02/19 07/23/22 Rei Montero MD [address] [place] [address] Consulting Physician Neurology 12/02/19 07/23/22 Dion Panchal MD PhD [address] [facility] [id number] [place], [place] [id number] Consulting Physician Neurology 07/24/22 documented as of this encounter "
--- OUTSIDE RECORDS SUMMARY | 2025-02-28 14:17 | XMS_ITS | Data Portability ---
Author Organization [facility] Address [address] [place] [address] Care Team Providers Care Refinery Operator Reforming Unit Name Role Phone CHARLENE ORTIZ Primary Care Provider Assessment Encounter Date Assessment Date Assessment LastModified by Organization Details LastModified Time 12/14/2020 12/14/2020 Annual gynecological exam performed. Patient will come back in a year unless there are new symptoms. Not available 12/13/2020 15:24:10 02/08/2022 02/08/2022 Annual gynecological exam performed. Patient will come back in a year unless there are new symptoms. [email or web address] Not available 02/08/2022 14:37:30 09/24/2023 09/24/2023 Annual gynecological exam performed. Patient will come back in a year unless there are new symptoms. Not available 09/24/2023 11:48:26 09/30/2024 09/30/2024 Annual gynecological exam performed. Patient will come back in a year unless there are new symptoms. [email or web address] Not available 09/29/2024 14:23:23 Plan of Treatment Reminders Order Date Submit Date Provider Last Modified By Organization Details Last Modified Time Details Appointments None recorded. Lab pap, IG + HR HPV - HPV regardless but if HPV is positive need subtyping 16,18/45 2023 024 [facility] (Lab), [address], [place], [address], 01/02/202 5 09:43:20 Referral None recorded. Procedures None recorded. Surgeries None recorded. Imaging MAMMO, screening, digital, bilateral 2023 024 [facility], [address], [place], [address], 4 04:01:53 MAMMO, screening, bilateral 2022 023 [facility], [address], [place], [address], 3 10:34:10 Medication Orders None recorded. Patient TargetsNo targets recorded. Patient InstructionsNo instructions recorded. Reason for Referral None Reported. Results Created Date Observation Date Name Description Value Unit Range Abnormal Flag Note LastModifiedBy Organization Detail LastModifiedTime 12/15/19 21 12/14/2020 pap, IG Pap test SEE RESULT S BELOW CASE REPOR T: Cytol ogy Gynec ologi say Repor t Case: [id number] Autho joseph marte Provi indra: Wilfredo Cr Colle cted: 12/14 1557 RESIDENT CARE ASSOCIATE Order ing Locat ion: [place] [facility] [place] Recei sam: 12/15 1319 First Scree n: Kenia Maynard Speci men: Scree alyssa Pap - Image d, Cervi x STATE MENT OF ADEQU ACY: Satis facto ry for evalu ation Trans forma tion zone compo nent prese nt FINAL DIAGN OSIS: Negat eriberto for Squam ous Intra epith elial Lesio n Elect ambreen javed grant d by Kenia Maynard on 021 at 1:13 PM ----- ----- ----- ----- ----- ----- ----- ----- ----- ----- ----- ----- ----- ----- ----- ----- ----- ----- - HPV RESUL TS: HPV mRNA E6/E7 : No HPV mRNA Detec aly NOTE: This high risk HPV mRNA assay detec ts fourt een high- risk HPV types (16, 18, 31, 33, 35, 39, 45, 51, 52, 56, 58, 59, 66, 68) witho ut diffe renti ation . CHART ABLE COMME NT: Note: This speci men was revie wed by a Cytot echno logis t and/o r Patho logis t (as indic ated in this repor t) after evalu ation using the Thinp rep Imagi ng Syste m. CLINI SAY INFOR MATIO N: Menst rual Statu s: LMP (if appli cable ): Clini say Histo ry/Pr eviou s Pap: Type of Neopl daniel (if appli cable ): Other Histo ry: Hormo ubaldo (if appli cable ): PAP EDUCA RO L NOTE: The Pap Test is a scree alyssa test with an inher ent false negat eriberto rate. Liqui d-bas e sampl ing may decre ase, but will not elimi elgin, false negat eriberto resul ts. A negat eriberto resul t does not precl ude the prese nce and/o r devel opmen t of disea se, since the prese nce of abnor mal cells in the sampl e depen ds on the locat ion of the lesio n and sampl ing techn ique. Iván nued regul ar scree alyssa is the best metho d of cance r preve ntion . If repor aly cytol ogic findi ng do not corre late with physi say and/o r histo rical findi ngs, furth er inves tigat ion is recom kortney d, as clini ahmet ospina nted. Not Available [facility] (Lab) [address], [place], [address], 12/18/2020 19:29:11 02/09/20 22 02/08/2022 IMAGE GUIDE D PAP AND HPV REGAR DLESS image guided Pap, HPV regardless of Pap result SEE RESULT S BELOW CASE REPOR T: Cytol ogy Gynec ologi say Repor t Case: [id number] Autho joseph marte Provi indra: Rene quintanilla , Austin Zhou cted: 02/08 1620 RESIDENT CARE ASSOCIATE Order ing Locat ion: [place] [facility] [place] Recei sam: 02/09 0102 First Scree n: Juliana Evans ret, CT Rescr een: Silvia guadarrama, Jeane delgado, CT Speci men: Scree alyssa Pap - Image d, Cervi x STATE MENT OF ADEQU ACY: Satis facto ry for evalu ation Trans forma tion zone compo nent prese nt FINAL DIAGN OSIS: Negat eriberto for Intra epith elial Lesio n or Frank magaña (NIL) . Elect ambreen javed grant d by Silvia guadarrama, Jeane delgado, CT on 022 at 10:27 PM ----- ----- ----- ----- ----- ----- ----- ----- ----- ----- ----- ----- ----- ----- ----- ----- ----- ---- HPV RESUL TS: HPV mRNA E6/E7 : No HPV mRNA Detec aly NOTE: This high risk HPV mRNA assay detec ts fourt een high- risk HPV types (16, 18, 31, 33, 35, 39, 45, 51, 52, 56, 58, 59, 66, 68) witho ut diffe renti ation . COMME NT: Note: This speci men was revie wed by a Cytot echno logis t and/o r Patho logis t (as indic ated in this repor t) after evalu ation using the Thinp rep Imagi ng Syste m. CLINI SAY INFOR MATIO N: Menst rual Statu s: LMP (if appli cable ): Clini say Histo ry/Pr eviou s Pap: Type of Neopl daniel (if appli cable ): Signi fican t Clini say Findi ngs: Other Histo ry: Hormo ubaldo (if appli cable ): PAP EDUCA RO L NOTE: The Pap Test is a scree alyssa test with an inher ent false negat eriberto rate. Liqui d-bas ed sampl ing may decre ase, but will not elimi elgin, false negat eriberto resul ts. A negat eriberto resul t does not precl ude the prese nce and/o r devel opmen t of disea se, since the prese nce of abnor mal cells in the sampl e depen ds on the locat ion of the lesio n and sampl ing techn ique. Iván nued regul ar scree alyssa is the best metho d of cance r preve ntion . If repor aly cytol ogic findi ng do not corre late with physi say and/o r histo rical findi ngs, furth er inves tigat ion is recom kortney d, as clini ahmet ospina nted. Not Available [facility] (Lab) [address], [place], [address], 02/15/2022 23:30:16 09/24/20 23 09/24/2023 IMAGE GUIDE D PAP AND HPV REGAR DLESS image guided Pap, HPV regardless of Pap result SEE RESULT S BELOW CASE REPOR T: Cytol ogy Gynec ologi say Repor t Case: [id number] Autho joseph marte Provi indra: Wilfredo Cr Colle cted: 09/24 1550 RESIDENT CARE ASSOCIATE Order ing Locat ion: [place] [facility] [place] Recei sam: 09/25 0605 First Scree n: Juliana Evans ret, CT Rescr een: Rahul James, CT Speci men: Scree alyssa Pap - Image d, Cervi x STATE MENT OF ADEQU ACY: Satis facto ry for evalu ation Trans forma tion zone compo nent prese nt FINAL DIAGN OSIS: Negat eriberto for Intra epith elial Lesio n or Frank magaña (NIL) . Elect ambreen javed grant d by Rahul James, CT on 09/29 at 1:16 PM ----- ----- ----- ----- ----- ----- ----- ----- ----- ----- ----- ----- ----- ----- ----- ----- ----- ---- HPV RESUL TS: HPV mRNA E6/E7 : No HPV mRNA Detec aly NOTE: This high risk HPV mRNA assay detec ts fourt een high- risk HPV types (16, 18, 31, 33, 35, 39, 45, 51, 52, 56, 58, 59, 66, 68) witho ut diffe renti ation . COMME NT: This speci men was revie wed by a Cytot echno logis t and/o r Patho logis t (as indic ated in this repor t) after evalu ation using the Thinp rep Imagi ng Syste m. CLINI SAY INFOR MATIO N: Menst rual Statu s: LMP (if appli cable ): Clini say Histo ry/Pr eviou s Pap: Type of Neopl daniel (if appli cable ): Signi fican t Clini say Findi ngs: Other Histo ry: Hormo ubaldo (if appli cable ): PAP EDUCA RO L NOTE: The Pap Test is a scree alyssa test with an inher ent false negat eriberto rate. Liqui d-bas ed sampl ing may decre ase, but will not elimi elgin, false negat eriberto resul ts. A negat eriberto resul t does not precl ude the prese nce and/o r devel opmen t of disea se, since the prese nce of abnor mal cells in the sampl e depen ds on the locat ion of the lesio n and sampl ing techn ique. Iván nued regul ar scree alyssa is the best metho d of cance r preve ntion . If repor aly cytol ogic findi ng do not corre late with physi say and/o r histo rical findi ngs, furth er inves tigat ion is recom kortney d, as rimai ahmet ospina nted. Not Available [facility] (Lab) [address], [place], [address], 09/29/2023 14:19:21 09/30/20 24 09/30/2024 IMAGE GUIDE D PAP AND HPV REGAR DLESS image guided Pap, HPV regardless of Pap result SEE RESULT S BELOW CASE REPOR T: Cytol ogy Gynec ologi say Repor t Case: [id number] Autho joseph marte Provi indra: Dermo dy, Aydee , ANP, GUILLOTINE OPERATOR Colle cted: 09/30 0857 Order ing Locat ion: [place] [place] Recei sam: 10/01 0718 First Scree n: Juliana Evans ret, CT Speci men: Herb shah Pap - Image d, Cervi x STATE MENT OF ADEQU ACY: Satis facto ry for evalu ation Trans forma tion zone compo nent prese nt ----- ----- ----- ----- ----- ----- ----- ----- ----- ----- ----- ----- ----- ----- ----- ----- ----- ---- FINAL DIAGN OSIS: Negat eriberto for Intra epith elial Catherine stokes or Frank magaña ([facility]) . Elect ambreen burns d by JORGE Lorenzo ret on 025 at 0840 SELLING MANAGER ----- ----- ----- ----- ----- ----- ----- ----- ----- ----- ----- ----- ----- ----- ----- ----- ----- ---- HPV RESUL TS: HPV mRNA E6/E7 : No HPV mRNA Detec aly NOTE: This high risk HPV mRNA assay detec ts fourt een high- risk HPV types (16, 18, 31, 33, 35, 39, 45, 51, 52, 56, 58, 59, 66, 68) witho ut diffe renti ation . COMME NT: This speci men was revie wed by a Cytot echno logis t and/o r Patho logis t (as indic ated in this repor t) after evalu ation using the Thinp rep Imagi ng Syste m. CLINI SAY INFOR MATIO N: Menst rual Statu s: LMP (if appli cable ): Clini say Histo ry/Pr eviou s Pap: Type of Neopl daniel (if appli cable ): Signi fican t Clini say Findi ngs: Other Histo ry: Hormo ubaldo (if appli cable ): PAP EDUCA RO L NOTE: The Pap Test is a scree alyssa test with an inher ent false negat eriberto rate. Liqui d-bas ed sampl ing may decre ase, but will not elimi elgin, false negat eriberto resul ts. A negat eriberto resul t does not precl ude the prese nce and/o r devel opmen t of disea se, since the prese nce of abnor mal cells in the sampl e depen ds on the locat ion of the lesio n and sampl ing techn ique. Iván nued regul ar scree alyssa is the best metho d of cance r preve ntion . If repor aly cytol ogic findi ng do not corre late with physi say and/o r histo rical findi ngs, furth er inves tigat ion is recom kortney d, as clini ahmet ospina nted. Not Available [facility] (Lab) [address], [place], [address], 10/14/2024 09:43:20 07/05/20 21 07/05/2021 MAMMO , scree alyssa, bilat eral No observ ation record ed. [facility] [address], [place], [address], 07/16/2021 16:56:20 10/09/20 22 10/09/2022 MAMMO , scree alyssa, bilat eral No observ ation record ed. [facility] [address], [place], [address], 10/11/2022 12:34:49 Result Notes None recorded. Problems Name Problem SNOMED Code Status Onset Date Resolution Date Notes Provider Name and Address Organization Details Recorded Time Screenin g for malignan t neoplasm of cervix Completed 201202/07/2022 Pap Smear;[facility] ID: 0001 [facility] Screenin g for malignan t neoplasm of rectum Completed 201202/07/2022 Screening for malignant neoplasms of the rectum;Pr actice ID: 0001 Marcie Meza [facility] 2 09:45:23 Speciali zed medical examinat ion Completed 201302/07/2022 Routine gynecolog ical examinati on;Practi ce ID: 0001 Marcie Meza [facility] 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 09:[facility] Concept Completed 201602/07/2022 Encntr for general adult medical exam w/o abnormal findings; Practice ID: 0001 Marcie Meza [facility] 2 09:45:23 Adult health examinat ion Completed 201302/07/2022 ROUTINE MEDICAL EXAM;Ghanshyam rded Elsewhere : No Locati on: [facility] So urce: EHR Chron ic: N Practic e ID: 0001 Bill able Time: 10:00:00 AM Marcie moore [facility] 2 09:45:23 Dysuria [id number] Completed 201202/07/2022 Dysuria;R ecorded Elsewhere : No Locati on: [facility] So urce: EHR Chron ic: N Practic e ID: 0001 Bill able Time: 03:15:00 PM Marcie moore [facility] 2 09:45:23 Female genital organ symptoms [id number] Completed 201202/07/2022 Unspecifi ed symptom associate d with female genital organs;Re corded Elsewhere : No Locati on: [facility] So urce: EHR Chron ic: N Practic e ID: 0001 Bill able Time: 03:15:00 PM Marcie Meza [facility] 2 09:45:23 Pregnanc y test negative [id number] Completed 201102/07/2022 examinati on or test, negative result;Re corded Elsewhere : No Locati on: [facility] So urce: EHR Chron ic: N Practic e ID: 0001 Bill able Time: 10:30:00 AM Marcie Meza [facility] 2 09:45:23 Ulcerati on of vulva [id number] Completed 201202/07/2022 Ulceratio n of vulva, unspecifi ed;Record ed Elsewhere : No Locati on: [facility] So urce: EHR Chron ic: Y Practic e ID: 0001 Bill able Time: 03:15:00 PM Marcie Meza [facility] 2 09:45:[address] Concept Completed 201902/07/2022 Encntr for routine child health exam w/o abnormal findings; Recorded Elsewhere : No Locati on: [facility] So urce: EHR Chron ic: N Practic e ID: 0001 Bill able Time: 08:45:00 AM Marcie Meza [facility] 2 09:45:23 Evaluati on finding [id number] Completed 201802/07/2022 Oth abn and inconclus eriberto findings on dx imaging of breast;Re corded Elsewhere : No Locati on: [facility] So urce: EHR Chron ic: N Practic e ID: 0001 Bill able Time: 01:25:45 PM Marcie moore [facility] 2 09:45:23 Cytologi c finding [id number] Completed 201102/07/2022 Papanicol aou smear of cervix with low grade squamous intraepit helial lesion (LGSIL);R ecorded Elsewhere : No Locati on: [facility] So urce: EHR Chron ic: N Practic e ID: 0001 Bill able Time: 10:30:00 AM Marcie moore [facility] 2 09:45:23 Problem Notes None recorded. Procedures Surgical History Date Name Laterality Status Provider Name and Address Organization Details Recorded Time 4 Date of Last Mammogram completed [facility] 09/30/2024 09:11:48 3 Date of Last Pap Smear completed [facility] 09/30/2024 09:13:15 3 completed [facility] 09/24/2023 11:54:34 3 Date of Last Colonoscopy completed Dianne [facility] 09/24/2023 11:54:34 2 extraction of wisdom tooth completed Marie Wright [facility] 12/13/2020 15:31:04 Imaging Results Imaging Date Name Status LastModified by Organiz ation Details LastModified Time 07/05/2021 MAMMO, screening, bilateral completed [facility] [address] [place] [address], [address], 07/16/2021 16:56:20 10/09/2022 MAMMO, screening, bilateral completed [facility] [address], [address], 10/11/2022 12:34:49 Procedure Notes None recorded. Medical Equipment None Reported. Allergies Allergen ID Allergen Name Allergen Category Reaction Reaction Severity Criticality Documentation Date Start Date Code Code System Note Provider Name and Address Organization Details Recorded Time 07679 colloidal oatmeal medicatio n rash moderate Not available 09/24/2023 76476 2 RxNorm Dianne Chapmaner [facility], [place] - [facility] 3 11:54:03 Medications Name Sig Start Date Stop Date Status Note LastModified by Organization Details LastModified Time hydrocodo ne 5 mg-acetam inophen 500 mg capsule take 1 capsule by oral route every 6 hours as needed 04/27 completed Prescrib ed Elsewher e: Yes Loca tion: [facility] odify By: vinicius brandtuntmanjinder DateTime : 02/03/20 12 03:30:00 PM Not Available Not Available Not Available Zyrtec 10 mg tablet take 1 tablet by oral route every day active Prescrib ed Elsewher e: Yes Loca tion: [facility] odify By: jesu kaminski DateTime : 02/24/20 12 10:30:00 AM Not Available Not Available Not Available triamcino lone acetonide 0.1 % topical cream APPLY TWICE DAILY TO THE RASH. DO NOT APPLY TO FACE OR GENITALS active Not Available Not Available No t Available prednison e (bulk) powder 11/05 completed Prescrib ed Elsewher e: Yes Loca tion: [facility] odify By: sandra yanez DateTime : 05/13/20 17 02:00:00 PM Not Available Not Available Not Available ibuprofen 100 mg tablet take 2 tablet (200MG) by oral route 4 - 6 hours as needed with food 04/27 completed Prescrib ed Elsewher e: No Locat ion: [facility] odify By: vinicius yanez DateTime : 02/24/20 12 10:30:00 AM Not Available Not Available Not Available Valtrex 1 gram tablet take 1 tablet (1000MG) by oral route 2 times every day 08/26 completed Prescrib ed Elsewher e: No Locat ion: [facility] odify By: cmedical Encount er DateTime : 08/04/20 13 03:42:22 PM Not Available Not Available Not Available Levaquin 500 mg tablet take 1 tablet (500MG) by oral route every 24 hours 04/27 completed Prescrib ed Elsewher e: No [facility] odify By: vinicius yanez DateTime : 04/10/20 13 11:04:16 AM Not Available Not Available Not Available Ortho Tri-Cycle n (28) 0.18 mg(7)/0.2 15mg(7)/0 .25 mg(7)-0.0 35 mg tablet take 1 tablet by oral route every day 05/03 completed Prescrib ed Elsewher e: No [facility]at ion: [facility] odify By: karey kaminski DateTime : 04/27/20 13 09:30:00 AM Not Available Not Available Not Available Vitamins and Minerals tablet 12/14 completed Prescrib ed Elsewher e: Yes Loca tion: [facility] odify By: srini yanez DateTime : 02/03/20 12 03:30:00 PM Not Available Not Available Not Available [place]-3 12/10 completed Prescrib ed Elsewher e: Yes Loca tion: [facility] odify By: sandra brandtuntmanjinder DateTime : 11/19/19 08:45:00 AM Not Available Not Available Not Available Vitamin D3 10 mcg (400 unit) capsule 12/10 completed Prescrib ed Elsewher e: Yes Loca tion: [facility] odify By: sandra brandtuntmanjinder DateTime : 11/19/19 08:45:00 AM Not Available Not Available Not Available Vitamin D3 50 mcg (2,000 unit) capsule 2 capsules every day by oral route. 2019 active Not Available Not Available Not Avai lable Multi Vitamin active Not Available Not Available Not Available Ocrevus active Not Available Not Avail able Not Available BinaxNOW COVID-19 Ag Self Test kit TEST DIRECTED TODAY 09/24 completed Not Available Not Available Not Available Paxlovid 300 mg (150 mg x 2)-100 mg tablets in a dose pack TK 2 NIRMATRE LVIR TS AND 1 RITONAVI R T TOGETHER PO TWICE DAILY FOR 5 DAYS 09/30 completed Not Available Not Available Not Available Vitals Date Recorded Body height Body mass index (BMI) Body weight Systolic blood pressure Diastolic blood pressure Provider Name and Address Organization Details Last Updated DateTime 12/14/2020 157.48 cm 35.8 kg/m2 13504.1 g 126 mm[Hg] 86 mm[Hg] Marie Wright [facility] 1 14:57:55 Date Recorded Body height Body mass index (BMI) Body weight Systolic blood pressure Diastolic blood pressure Provider Name and Address Organization Details Last Updated DateTime 02/08/2022 157.48 cm 36.8 kg/m2 32912.5 g 120 mm[Hg] 74 mm[Hg] Marcie Meza [facility] 2 14:38:12 Date Recorded Body height Body mass index (BMI) Body weight Systolic blood pressure Diastolic blood pressure Provider Name and Address Organization Details Last Updated DateTime 09/24/2023 157.48 cm 39 kg/m2 18316.17 g 120 mm[Hg] 83 mm[Hg] Dianne Lozano [facility] 3 11:53:46 Date Recorded Body height Body mass index (BMI) Body weight Systolic blood pressure Diastolic blood pressure Provider Name and Address Organization Details Last Updated DateTime 09/30/2024 157.48 cm 39.5 kg/m2 45335.23 g 122 mm[Hg] 85 mm[Hg] Bernarda Uribe [facility] 4 09:15:41 Social History Question Answer Notes LastModified by Organizat ion Details LastModified Time Tobacco Smoking Status Never Smoker Dianne Lozano [facility] 09/24/2023 11:54:40 Do You Have An Advance Directive? No Information n ot available 12/14/2020 If You Are , What Was Your Level Of Alcohol Consumption Prior To ? None Information not available 09/24/2023 How Many Years Have You Consumed Alcohol? 29 [email or web address] Information not available 09/30/2024 Are You Blind Or Do You Have Difficulty Seeing? No Information n ot available 12/13/2020 What Is Your Level Of Caffeine Consumption? Occasional Information not available 12/14/2020 How Much Tobacco Do You Chew? None Information not available 12/14/2020 In The 14 Days Before Symptom Onset, Have You Had Close Contact With A Laboratory-confirm ed COVID-19 While That Case Was Ill? No Information n ot available 12/14/2020 In The 14 Days Before Symptom Onset, Have You Had Close Contact With A Person Who Is Under Investigation For COVID-19 While That Person Was Ill? No Information not available 12/14/2020 Have You Been To An Area Known To Be High Risk For COVID-19? No Information not available 12/14/2020 Are You Deaf Or Do You Have Serious Difficulty Hearing? No Information not available 12/13/2020 What Type Of Diet Are You Following? VEGETARIAN Information n ot available 12/14/2020 What Is The Highest Grade Or Level Of School You Have Completed Or The Highest Degree You Have Received? [id number] Information not available 12/14/2020 Are There Any Guns Present In Your Home? Yes Information not available 12/14/2020 Do You Use Protection During Sex? Always Information not available 12/14/2020 Do You Use Your Seat Belt Or Car Seat Routinely? Yes Information not available 12/14/2020 Do You Have Smoke And Carbon Monoxide Detectors In Your Home? Yes Information not available 12/14/2020 How Much Tobacco Do You Smoke? No Information not available 12/14/2020 Do You Use Sunscreen Routinely? Yes Information not available 12/14/2020 Has Tobacco Cessation Counseling Been Provided? No Information not available 09/24/2023 How Many Years Have You Smoked Tobacco? 0 Information not available 12/14/2020 Have You Used IV Drugs? No Information not available 12/14/2020 Do You Have Difficulty Walking Or Climbing Stairs? No Information not available 09/24/2023 Sex: Unknown Functional Status Question Answer Note LastModified by Organizat ion Details LastModified Time Do you use any illicit or recreational drugs? No Information not available 12/13/2020 Do you or have you ever used any other forms of tobacco or nicotine? No Information not available 09/24/2023 What is your level of alcohol consumption? Occasional Information not available 09/24/2023 Are you able to walk? YESWOREST Information not available 12/13/2020 Are you able to care for yourself? 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 No Information not available 09/24/2023 What is your exercise level? Occasional [email or web address] Information not available 09/30/2024 Mental Status Question Answer Note LastModified by Organization D etails LastModified Time Do you feel stressed (tense, restless, nervous, or anxious, or unable to sleep at night)? [id number] [email or web address] Information not available 09/30/2024 Family History Relationship Description Onset Age of this Age Resolved Age Notes LastModified by Organization Details LastModified Time Mother Anemia Not available 14:58:15 Mother Malignant tumor of breast [email or web address] Not available 2023 09:11:48 Father Hypertensive disorder Not available 2020 14:58:15 Paternal Grandmother Hypertensive disorder Not available 2020 14:58:15 Maternal Grandmother Carcinoma in situ of colon [email or web address] Not available 2023 09:11:48 Paternal Aunt Hypertensive disorder Not available 2020 14:58:15 Paternal Aunt Carcinoma in situ of breast [email or web address] Not available 2023 09:11:48 Paternal Aunt Malignant tumor of breast 53 [email or web address] Not available 2023 09:11:48 Maternal Grandfather Diabetes mellitus Not available 2020 14:58:15 Son Substance abuse 20 Not available 2023 09:11:48 Son Depressive disorder Not available 2022 11:54:19 Son Substance abuse [email or web address] Not available 2023 09:11:48 Medical History Condition Response Allergies (Food, seasonal, environmental ) Y Other Y Breast Cancer N Drug/Latex Allergies/Reactions N Blood Transfusion N Dermatologic Disorders N Lung Disease N Defects or Inherited Disease N Breast Problem N Gestational Diabetes N Hematologic disorders N Anesthesia Complications N History of STI Y Deep Vein Thrombosis N Polycystic ovary syndrome N Anxiety Disorder N Autoimmune disease N Arthritis N Infertility N Polyps N Acid Reflux (GERD) N History of abnormal pap Y Cancer N Stroke N Varicosities N Neurologic/Epilepsy N Endometriosis N High Cholesterol N Headaches N Fibromyalgia N Kidney Disease N Heart Problems N Kidney or Bladder Problems N Thyroid Problems N GI Problems N Eating Disorder N Anemia N Art (IVF or FET) N Psychiatric Illness N Ovarian Cancer N Diabetes N Pulmonary (TB, Asthma) N Hepatitis/Liver Disease N No Past Medical History N Eczema Y Urinary Tract Infection N Abuse/Domestic Violence N Asthma N Trauma/Violence N Depression/ depression N Heart Disease N Pre-Eclampsia N Hypertension N Osteoporosis N Thrombophilias N Gynecological History Statement/Question Response Flow Moderate Date of Last Mammogram 01/13/2024 Date of LMP 09/21/2024 STIs/STDs N Was last menstrual period normal N Date of Last Colonoscopy 01/21/2023 Abstinence Desired Control Method Abstinence Abnormal Pap Y On BCP's at Conception? N HPV Vaccine N Duration of Flow (days) 11 Current Control Method Abstinence Age at First Child 26 Are cycles usually normal Y Frequency of Cycle (Q days) 25 Sexually Active? N Menses Monthly N Age of first menstrual cycle 14 Date of Last Pap Smear 09/24/2023 Sexual Problems? N LMP Definite 01/21/2023 N Obstetrics History GPAL:G 2 P 2 0 0 2 Type Value Full Term 2 Living 2 Total 2 Past Encounters Encounter ID Performer Location Encounter Start Date Encounter Closed Date Diagnosis/Indication Diagnosis SNOMED-CT Code Diagnosis ICD10 Code Diagnosis Note [id number] Kasia Solis [facility] [address] [address] 12/14/2020 14:39:40 12/14/2020 15:58:55 [id number]|2025-02-28 14:17:00|2025-02-28 14:17:00|XMS_ITS|RISHABHG ANDRES|External Medical Summaries|[id number]|" Encounter Summary Created on: February 28, 2025 Charlene Pepper : 1970 Sex: Female Author Organization [facility] Address [address] [place] [address] Phone Care Team Providers Care Refinery Operator Reforming Unit Name Role Phone Charlene Ortiz MD Primary Care Provi indra Dion Panchal MD PhD Unavailable [phone] Encounter Details Date Type Department Care Team (Late st Contact Info) Description 01/25/2025 Results Follow-Up [facility] Multiple Sclerosis [address] [facility] Advanced Medicine 7th [place] [id number] Dion Panchal MD PhD [address] [facility] [id number] [place] [address] Iron profile w/ IBC Social History Tobacco Use Types Packs/Day Years [...] you are drinking? 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 Not on file No t on file documented as of this encounter Plan of Treatment Scheduled Orders Name Type Priority Associated Diagnoses Orde r Schedule CBC with auto differential Lab Routine Multiple sclerosis (HCC) High risk medication use Immunosuppression due to drug therapy Expected: 06/13/2025 (Approximate), Expires: 01/27/2026 Comprehensive metabolic panel Lab Routine Multiple sclerosis (HCC) High risk medication use Immunosuppression due to drug therapy Expected: 06/13/2025 (Approximate), Expires: 01/27/2026 Lymphocyte subset panel 1 Lab Routine Multiple sclerosis (HCC) High risk medication use Immunosuppression due to drug therapy Expected: 06/13/2025 (Approximate), Expires: 01/27/2026 Immunoglobulins A/E/G/M, Serum Lab Routine Multiple sclerosis (HCC) High risk medication use Immunosuppression due to drug therapy Expected: 06/13/2025 (Approximate), Expires: 01/27/2026 documented as of this encounter Visit Diagnoses Diagnosis Multiple sclerosis (HCC)- Primary Multiple sclerosis High risk medication use Immunosuppression due to drug therapy documented in this encounter Care Teams Refinery Operator Reforming Unit Relationship Specialty Start Date End Date Charlene Ortiz MD [address] [place] [id number] PCP - General Family Medicine 08/12/19 Dion Panchal MD PhD [address] [facility] [id number] [place] [address] Consulting Physician Neurology 07/24/22 documented as of this encounter "
--- OUTSIDE RECORDS SUMMARY | 2025-02-28 14:17 | XMS_ITS | Encounter Summary ---
Author Organization [facility] Address [address] [place] [address] Care Team Providers Care Welding Instructor Name Role Phone Unavailable Primary Care Provider Unavailabl e Encounter Details Date Type Department Care Team (Late st Contact Info) Description 05/31/2020 Lab Requisition [facility] [address] [place] [address] Kieran Adams MD [address] [place] [address] Social History Tobacco Use Types Packs/Day Years Used Date Smoking Tobacco: Never Assessed Comments Unknown Sex and Gender Information Value Date Recorded Sex Assigned at Not on file 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 Gender Identity Not on file Sexual Orientation Not on file documented as of this encounter Plan of Treatment Not on file documented as of this encounter Procedures Procedure Name Priority Date/Time Associated Diagnosis Comments DERMATOPATHOLOGY Routine 05/30/2020 12:0 0 AM CDT documented in this encounter Results * DERMATOPATHOLOGY (05/30/2020 12:00 AM CDT) Case Report Dermatopathology Report Case: [id number] Authorizing Provider: Kieran Adams MD Collected: 05/30/2020 12:00 AM Ordering Location: [facility] Received: 05/31/2020 12:39 PM Pathologist: Marzena Jerry MD Specimen: Skin, left medial calf 0 3:26 PM CDT DERMATOPATHOLOGY LABORATORY Final Diagnosis Specimen A. SKIN, left medial calf: LENTIGINOUS MELANOCYTIC NEVUS, COMPOUND TYPE, IRRITATED (COMPOUND MELANOCYTIC NEVUS WITH ARCHITECTURAL DISORDER) (D22.72) 0 3:26 PM CDT DERMATOPATHOLOGY LABORATORY at 1526 CDT Clinical History R/O dys nevus. 0 3:26 PM CDT DERMATOPATHOLOGY LABORATORY Gross Description Specimen A: Received is one formalin filled container labeled with the patient's name and designated left medial calf. The specimen consists of a shave biopsy measuring [id number]. Jar 0. 0 3:26 PM CDT DERMATOPATHOLOGY LABORATORY Microscopic Description Specimen A. SKIN, left medial calf: This is a compound nevus. There is melanin pigment in the stratum corneum. There is architectural disorder characterized by a lentiginous proliferation of melanocytes between irregular nevus nests of cells along the dermal epidermal junction. There is underlying fibroplasia of the papillary dermis. The intradermal component is bland in appearance and matures with depth. (Compound Jorge A's Nevus or Compound Dysplastic Nevus) 0 3:26 PM CDT DERMATOPATHOLOGY LABORATORY Disclaimer An external and internal positive and negative controls are appropriate for the histochemical, immunohistochemical and immunofluorescence stain(s) in this case (if any), except where stated explicitly. The performance characteristics of the stain(s) cited in this report were developed and its performance characteristic determined by the Dermatopathology Laboratory at [facility], directed by Dr. Lucas Spencer. These tests need not be, and therefore are not, approved by the [place] Food and Drug Administration. The tests are used for clinical purposes. Billing Codes Specimen Charges Stain Charges 09561 1 0 3:26 PM CDT DERMATOPATHOLOGY LABORATORY Embedded Images 0 3:26 PM CDT DERMATOPATHOLOGY LABORATORY Pathology/Cytolog y TISSUE SPECIMEN FROM SKIN / Unknown 05/30/2020 05/31/2020 12:39 PM CDT us Kieran Adams MD LAB - PATHOLOGY/CYTOLOGY ORD ERABLES Final Result DERMATOPATHOLOGY LABORATORY [facility] - Department of Dermatology [place] [address], [facility] [phone] documented in this encounter Visit Diagnoses Not on filedocumented in this encounter
--- OUTSIDE RECORDS SUMMARY | 2025-02-28 14:17 | XMS_ITS | Clinical Summary ---
Author Organization [facility] Address [address] [place] [address] Care Team Providers Care Cover Inspector Name Role Phone Unavailable Primary Care Provider Unavailabl e Source Comments [facility] Frock Advisor,non-owned Affiliates and Associated Physician Practices is amultiple site organization consisting of ambulatory clinics and hospital sitesin [place], [place], [place] and [place]. This disclosure is being madepursuant to the Care Everywhere program and may not contain all information available regarding this patient. 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 Gender Identity Not on file Sexual Orientation Not on file Plan of Treatment Health Maintenance Due Date Last Done Comments COLOGUARD (AGES 45-75) - COL ON CA SCREENING 1970 COLON MONITORING 1972 COLONOSCOPY - COLON CA SCREENING 1972 CT COLONOGRAPHY - COLON CA SCREENING 1972 Colorectal Cancer Screening 1972 FIT - COLON CA SCREENING 1972 FLEX SIG - COLON CA SCREENING 1972 LIPID TESTING 1972 MAMMOGRAM 1972 PAP SMEAR 1972 HIV SCREENING 1987 HEPATITIS C SCREENING 11/02/1990 DTAP/TDAP/TD VACCINES (1 - Tdap) 1991 HEPATITIS B VACCINE (1 of 3 - 19+ 3-dose series) 1991 PNEUMOCOCCAL VACCINE 50+ (1 of 1 - PCV) 2022 ZOSTER VACCINE (1 of 2) 2022 COVID-19 VACCINE (1 - 2023-2 5 season) 2024 DEPRESSION SCREENING 10/13/2024 INFLUENZA VACCINE (Season Ended) 2025 HIB VACCINE Aged Out No longer eligi ble based on patient's age to complete this topic HPV VACCINE Aged Out No longer eligi ble based on patient's age to complete this topic MENINGOCOCCAL (Group B) VACC INE SHARED DECISION-MAKING Aged Out No longer eligibl e based on patient's age to complete this topic MENINGOCOCCAL GROUPS A/C/Y/W VACCINE Aged Out No longer eligible b ased on patient's age to complete this topic Insurance [facility]
--- OUTSIDE RECORDS SUMMARY | 2025-02-28 14:17 | XMS_ITS | Encounter Summary ---
Author Organization [facility] Healthcare Address [address] [place] [address] Care Team Providers Care Jewish Thought Professor Name Role Phone Charlene Ortiz MD Primary Care Provi indra Rei Montero MD Unavailable [phone] Rei Montero MD Unavailable [phone] Dion Panchal MD PhD Unavailable [phone] Encounter Details Date Type Department Care Team (Late st Contact Info) Description 09/16/2019 Telephone [facility] Neuro Interventional Radiology [address] [place] [address] Charlene Jeffries, RT Social History Tobacco Use Types Packs/Day Years [...] on file 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 Gender Identity Female 03/26/2021 3:39 PM CDT Sexual Orientation Straight 03/26/2021 3: 39 PM CDT 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 Not on file No t on file documented as of this encounter Plan of Treatment Not on file documented as of this encounter Visit Diagnoses Not on filedocumented in this encounter Care Teams Jewish Thought Professor Relationship Specialty Start Date End Date Charlene Ortiz MD [address] [place] [address] PCP - General Family Medicine 08/12/19 Rei Montero MD [address] [place] [address] Consulting Physician Neurology 12/02/19 07/23/22 Rei Montero MD [address] [place] [address] Consulting Physician Neurology 12/02/19 07/23/22 Dion Panchal MD PhD [address] [facility] [id number] [place] [address] Consulting Physician Neurology 07/24/22 documented as of this encounter
--- OUTSIDE RECORDS SUMMARY | 2025-02-28 14:17 | XMS_ITS | Clinical Summary ---
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 Gender Identity Not on file Sexual Orientation Not on file Plan of Treatment Health Maintenance Due Date Last Done Comments Hepatitis C Virus (HCV) Screening 1970 Colonoscopy 2017 Colorectal Cancer Screening 2017 Cologuard 2022 Immunochemical Fecal Occult Blood 2022 Pneumococcal Immunization (5 0+ years) (1 of 1 - PCV) 2022 Zoster Immunization (1 of 2) 2022 SARS-COV-2 Immunization (2 - season) 2024 12/16/2020 Influenza Immunization (Seas on Ended) 2025 06/24/2021, 06/18/2020, 08/21/2019 Respiratory Syncytial Virus (RSV) Immunization (Adult) (1 - 1-dose 75+ series) 2047 DTaP/Tdap/Td Immunization Discontinued 12/02/2019 TdaP Immunization Completed 12/02/2019 Hepatitis B Immunization Completed 020, 01/28/2020, 12/23/2019 Human Papillomavirus (HPV) Immunization Aged Out No longer eligible based on patient's age to complete this topic Meningococcal Immunization (ACWY) Aged Out No longer eligible based on patient's age to complete this topic Rotavirus Immunization Aged Out No lo nger eligible based on patient's age to complete this topic
== END 2025-02-28 14:13 | disposition home or self-care (01) ==
LOC: ANHIMG 14:15
PROVIDERS: PCP Family Medicine; Visit Provider Student in an Organized Health Care Education/Training Program
DX: Z12.31 Encounter for screening mammogram for malignant neoplasm of breast (principal)
CPT/HCPCS: 77063; 77067